=== PATIENT | female | born 1950 | race Caucasian/White ===

== ENCOUNTER 2021-06-12 17:55 | Inpatient (IN) | payer MEDICARE ==
[~2021-06-12] VITALS: Ht 157.5 cm; Wt 122.1 kg
[2021-06-12] MEDS ORDERED: NS 1,000 ML IV ONE (19:05)
[2021-06-12] MEDS: METOPROLOL 5 MG/5 ML VIAL IV SCH ×2 (19:29→21:02)
[2021-06-12 19:37] LABS: BASO # 0.1 10^3/uL (0.0-0.2); BASO % 0.3 % (0.0-1.0); EOS # 0.1 10^3/uL (0.0-0.5); EOS % 0.6 % (0.0-3.0); HEMOGLOBIN 17.9 g/dl (12.0-15.5); LYMPH % 6.7 % (24.0-44.0); MEAN CORPUSCULAR HEMOGLOBIN 26.2 pg (27.0-33.0); MEAN CORPUSCULAR VOLUME 81.9 fl (80.0-96.0); MONO # 0.9 10^3/uL (0.0-0.8); MONO % 5.6 % (2.0-8.0); NEUTROPHILS # 13.5 10^3/uL (1.5-8.5); NEUTROPHILS % 86.4 % (36.0-66.0); PLATELET COUNT, AUTOMATED 299 10^3/uL (150-450); RED BLOOD COUNT 6.84 10^6/uL (4.00-5.40); WHITE BLOOD COUNT 15.6 10^3/uL (4.0-10.0)
[2021-06-12 20:15] LABS: ALBUMIN 3.2 GM/DL (3.2-5.2); BILIRUBIN,DIRECT 0.7 MG/DL (0.0-0.2); BILIRUBIN,TOTAL 1.8 MG/DL (0.2-1.0); CALCIUM LEVEL 9.5 MG/DL (8.8-10.2); CREATININE FOR GFR 1.27 MG/DL (0.55-1.30); POTASSIUM SERUM 3.2 MEQ/L (3.5-5.1); THYROID STIMULATING HORMONE 7.54 uIU/ML (0.358-3.740); THYROXINE (T4) 13.6 UG/DL (4.5-12.0); TOTAL PROTEIN 7.9 GM/DL (6.4-8.2)
[2021-06-12] MEDS ORDERED: ISOVUE-370 76% 100ML VIAL As Ordered ONE (21:45)
[2021-06-12] MEDS ORDERED: cefTRIAXone SOD 1 GM in D5W MINI-BAG PLUS 50 ML IV ONE (23:35)
[2021-06-13] MEDS ORDERED: ACETAMINOPHEN TAB 650MG DOSE (2X325MG) PO PRN (00:25)
[2021-06-13] MEDS ORDERED: POTASSIUM CHLORIDE 10MEQ SR TABLET PO ONE (00:25)
[2021-06-13] MEDS ORDERED: GLUCOSE 4GM CHEW TABLET PO PRN (00:25)
[2021-06-13] MEDS ORDERED: DEXTROSE 50% 50 ML SYRINGE IV PRN (00:25)
[2021-06-13] MEDS ORDERED: SODIUM CHLORIDE 0.9% 1000ML IV STA (00:25)
[2021-06-13] MEDS ORDERED: MOM 30ML SUSPENSION UDC PO PRN (00:25)
[2021-06-13] MEDS ORDERED: GLUCAGON INJ 1MG VIAL SC PRN (00:25)
[2021-06-13] MEDS ORDERED: NYSTATIN OINTMENT 15 GM TOP PRN (00:45)
[2021-06-13] MEDS: HumaLOG INSULIN (NovoLOG) PER UNIT SC SCH ×6 (00:55→21:00)
[2021-06-13 01:26] LABS: HEMOGLOBIN A1c 6.2 %
[2021-06-13] MEDS ORDERED: LABETALOL 100MG/20ML VIAL IV STA (01:36)
[2021-06-13 01:59] LABS: INR 1.29; PROTHROMBIN TIME 16.5 SECONDS (12.7-14.5)
[2021-06-13 02:00] LABS: PARTIAL THROMBOPLASTIN TIME 32.7 SECONDS (25.9-37.0)
[2021-06-13] MEDS ORDERED: ALLO100T PO (02:22)
[2021-06-13] MEDS ORDERED: LEVA45AE INH (02:22)
[2021-06-13] MEDS ORDERED: HYDR25TA PO (02:22)
[2021-06-13] MEDS ORDERED: DILT240C82 PO (02:22)
[2021-06-13] MEDS ORDERED: C 50TAB PO (02:22)
[2021-06-13] MEDS ORDERED: ZINC1TAB2 PO (02:22)
[2021-06-13] MEDS ORDERED: BASA100I SC (02:22)
[2021-06-13] MEDS ORDERED: EZET10TA21 PO (02:22)
[2021-06-13] MEDS ORDERED: NOVOINJ SC (02:22)
[2021-06-13] MEDS ORDERED: B-1100TA2 PO (02:22)
[2021-06-13] MEDS ORDERED: VITATAB73 PO (02:22)
[2021-06-13] MEDS ORDERED: VITA500T41 PO (02:22)
[2021-06-13] MEDS ORDERED: LISI40TA4 PO (02:23)
[2021-06-13] MEDS ORDERED: ELIQ5TAB PO (02:23)
[2021-06-13] MEDS ORDERED: HOME MED LIST COMPLETE! XX SCH (02:25)
[2021-06-13] MEDS: METOPROLOL 5 MG/5 ML VIAL IV SCH (04:53)
[2021-06-13] MEDS: DOCUSATE SODIUM 100MG CAPSULE PO SCH ×2 (07:55→21:10)
[2021-06-13] MEDS: APIXABAN 5 MG TAB (ELIQUIS) PO SCH ×2 (07:56→21:10)
[2021-06-13] MEDS: DOXYCYCLINE HYCLATE 100MG TABLET PO SCH ×2 (07:56→21:10)
[2021-06-13 08:45] LABS: BASO # 0.1 10^3/uL (0.0-0.2); BASO % 0.4 % (0.0-1.0); EOS # 0.1 10^3/uL (0.0-0.5); EOS % 0.9 % (0.0-3.0); HEMATOCRIT 45.5 % (36.0-47.0); LYMPH # 1.1 10^3/uL (1.5-5.0); LYMPH % 8.8 % (24.0-44.0); MEAN CORPUSCULAR HEMOGLOBIN 26.6 pg (27.0-33.0); MEAN CORPUSCULAR HGB CONC 32.1 g/dl (32.0-36.5); MEAN CORPUSCULAR VOLUME 82.9 fl (80.0-96.0); MONO # 1.1 10^3/uL (0.0-0.8); MONO % 8.7 % (2.0-8.0); NEUTROPHILS # 10.4 10^3/uL (1.5-8.5); NEUTROPHILS % 80.7 % (36.0-66.0); PLATELET COUNT, AUTOMATED 253 10^3/uL (150-450); RED BLOOD COUNT 5.49 10^6/uL (4.00-5.40); WHITE BLOOD COUNT 12.8 10^3/uL (4.0-10.0)
[2021-06-13 08:53] LABS: HEMOGLOBIN 14.6 g/dl (12.0-15.5)
[2021-06-13] MEDS ORDERED: METOPROLOL TART 25 MG TABLET PO SCH (09:00)
[2021-06-13] MEDS ORDERED: APIXABAN 2.5 MG TAB (ELIQUIS) PO SCH (09:00)
[2021-06-13 09:31] LABS: CALCIUM LEVEL 8.6 MG/DL (8.8-10.2); CREATININE FOR GFR 1.2 MG/DL (0.55-1.30); FREE T4 1.6 NG/DL (0.76-1.46); MAGNESIUM LEVEL 2.1 MG/DL (1.8-2.4); POTASSIUM SERUM 3.8 MEQ/L (3.5-5.1); THYROID STIMULATING HORMONE 4.54 uIU/ML (0.358-3.740)
[2021-06-13 12:31] VITALS: BP 165/81
[2021-06-13] MEDS: METOPROLOL TART 25 MG TABLET PO SCH ×3 (13:22→23:48)
[2021-06-13 15:34] VITALS: BP 142/80
[2021-06-13 16:04] VITALS: O2SAT 94
[2021-06-13 20:00] VITALS: BP 150/79
[2021-06-13] MEDS ORDERED: cefTRIAXone SOD 1 GM in D5W MINI-BAG PLUS 50 ML IV SCH (23:00)
[2021-06-13 23:46] VITALS: BP 137/89
[2021-06-14] VITALS (10 sets, daily range): BP systolic 130–183; BP diastolic 65–97; O2SAT 100
[2021-06-14] MEDS: METOPROLOL TART 25 MG TABLET PO SCH ×2 (05:09→12:13)
[2021-06-14 06:02] LABS: BASO # 0.1 10^3/uL (0.0-0.2); BASO % 0.6 % (0.0-1.0); EOS # 0.3 10^3/uL (0.0-0.5); HEMOGLOBIN 13.4 g/dl (12.0-15.5); LYMPH # 1.2 10^3/uL (1.5-5.0); LYMPH % 13.8 % (24.0-44.0); MEAN CORPUSCULAR HGB CONC 31.9 g/dl (32.0-36.5); MEAN CORPUSCULAR VOLUME 84.7 fl (80.0-96.0); MONO # 0.9 10^3/uL (0.0-0.8); MONO % 9.4 % (2.0-8.0); NEUTROPHILS # 6.6 10^3/uL (1.5-8.5); PLATELET COUNT, AUTOMATED 258 10^3/uL (150-450); RED BLOOD COUNT 4.96 10^6/uL (4.00-5.40)
[2021-06-14 06:15] LABS: CALCIUM LEVEL 8.4 MG/DL (8.8-10.2); CREATININE FOR GFR 1.28 MG/DL (0.55-1.30); GLOMERULAR FILTRATION RATE 43.6 (>39); MAGNESIUM LEVEL 2.1 MG/DL (1.8-2.4); POTASSIUM SERUM 3.7 MEQ/L (3.5-5.1)
[2021-06-14] MEDS: DOXYCYCLINE HYCLATE 100MG TABLET PO SCH (07:41)
[2021-06-14] MEDS: HumaLOG INSULIN (NovoLOG) PER UNIT SC SCH ×2 (07:42→12:00)
[2021-06-14] MEDS: APIXABAN 5 MG TAB (ELIQUIS) PO SCH (07:42)
[2021-06-14] MEDS: DOCUSATE SODIUM 100MG CAPSULE PO SCH (07:42)
[2021-06-14] MEDS ORDERED: FUROSEMIDE 40MG/4ML VIAL (J1940) IV ONE (08:15)
[2021-06-14] MEDS ORDERED: PREVNAR 13 VACCINE SYRINGE IM ONE (09:00)
[2021-06-14] MEDS ORDERED: HEPARIN SOD (PORCINE) 5000UNITS/ML 1ML VIAL/SYRINGE IV PRN (10:25)
[2021-06-14] MEDS ORDERED: HEPARIN DRIP 25,000 UNITS in IV 1 EA IV SCH (10:25)
[2021-06-14] MEDS ORDERED: ISOVUE-370 76% 100ML VIAL As Ordered ONE (10:51)
[2021-06-14 11:09] LABS: INR 1.51; PARTIAL THROMBOPLASTIN TIME 39.2 SECONDS (25.9-37.0); PROTHROMBIN TIME 18.6 SECONDS (12.7-14.5)
[2021-06-14 11:24] LABS: CK-MB VALUE MASS 2.2 NG/ML (<3.6); MB/CK RELATIVE INDEX 4.31 (< OR =4)
== END 2021-06-14 14:40 | disposition short-term general hospital (02) | DRG 872 ==
LOC: M ED 17:55 → M ED INP 06-13 00:25 → ENRESERV 06-13 13:51 → M PCU 06-13 15:21 → M ICU 06-14 11:18 → UNDODISIN 06-14 12:00
PROVIDERS: ADMIT Family Medicine; ATTEND Internal Medicine
DX: A41.9 Sepsis, unspecified organism (principal); N39.0 Urinary tract infection, site not specified; L03.116 Cellulitis of left lower limb; N25.81 Secondary hyperparathyroidism of renal origin; I74.3 Embolism and thrombosis of arteries of the lower extremities; G91.2 (Idiopathic) normal pressure hydrocephalus; I13.0 Hypertensive heart and chronic kidney disease with heart failure and stage 1 through stage 4 chronic kidney disease, or unspecified chronic kidney disease; G47.33 Obstructive sleep apnea (adult) (pediatric); R29.6 Repeated falls; Z91.14 Patient's other noncompliance with medication regimen; Z90.49 Acquired absence of other specified parts of digestive tract; I48.91 Unspecified atrial fibrillation; I16.0 Hypertensive urgency; E87.6 Hypokalemia; R94.6 Abnormal results of thyroid function studies; Z79.01 Long term (current) use of anticoagulants; Z79.4 Long term (current) use of insulin; Z79.899 Other long term (current) drug therapy; Z88.0 Allergy status to penicillin; Z88.2 Allergy status to sulfonamides; Z88.8 Allergy status to other drugs, medicaments and biological substances; Z20.822 Contact with and (suspected) exposure to COVID-19; Z72.3 Lack of physical exercise; I50.9 Heart failure, unspecified; E11.42 Type 2 diabetes mellitus with diabetic polyneuropathy; I50.810 Right heart failure, unspecified; N18.30 Chronic kidney disease, stage 3 unspecified; E11.22 Type 2 diabetes mellitus with diabetic chronic kidney disease

== ENCOUNTER 2023-08-12 09:50 | Observation (INO) | payer MEDICARE ==
[~2023-08-12] VITALS: Ht 167.6 cm; Wt 98.0 kg
[~2023-08-12 09:50] MED LIST: ALLO100T PO; B-1100TA2 PO; BACI1TAB21 PO; BASA100I SC; C 50TAB PO; CEFD300CAP PO; DILT240C82 PO; ELIQ5TAB PO; EZET10TA21 PO; HYDR-161 PO; HYDR25TA88 PO; LEVA45AE INH; LISI40TA4 PO; MAGN200T10 PO; NOVOINJ SC; SEMA1PEN2 SC; VITA500T41 PO; VITATAB73 PO; ZINC1TAB2 PO
[2023-08-12 12:05] LABS: BASO % 0.3 % (0.0-1.0); EOS # 0.1 10^3/uL (0.0-0.5); EOS % 0.5 % (0.0-3.0); HEMATOCRIT 46.5 % (36.0-47.0); MEAN CORPUSCULAR HEMOGLOBIN 27.9 pg (27.0-33.0); MEAN CORPUSCULAR HGB CONC 34.4 g/dl (32.0-36.5); MEAN CORPUSCULAR VOLUME 81.2 fl (80.0-96.0); MONO # 0.9 10^3/uL (0.0-0.8); MONO % 7.8 % (2.0-8.0); NEUTROPHILS # 9.2 10^3/uL (1.5-8.5); PLATELET COUNT, AUTOMATED 215 10^3/uL (150-450); RED BLOOD COUNT 5.73 10^6/uL (4.00-5.40); WHITE BLOOD COUNT 11.2 10^3/uL (4.0-10.0)
[2023-08-12 12:35] LABS: THYROID STIMULATING HORMONE 2.015 uIU/ML (0.55-4.78)
[2023-08-12 12:36] LABS: FREE T4 1.32 NG/DL (0.89-1.76)
[2023-08-12 12:39] LABS: CK-MB VALUE MASS < 1.0 NG/ML (<3.6); CPK CREATINE PHOSPHOKINASE 59 U/L (34-145); MB/CK RELATIVE INDEX 1.69 (< OR =4)
[2023-08-12] MEDS: NS 500 ML IV ONE (12:57)
[2023-08-12 13:10] LABS: APPEARANCE, URINE HAZY (CLEAR); BACTERIA, URINE AUTO NEGATIVE (NEGATIVE); BILIRUBIN, URINE AUTO NEGATIVE (NEGATIVE); BLOOD, URINE BLOOD 1+ (NEGATIVE); COLOR, URINE YELLOW (YELLOW); GLUCOSE, URINE (UA) AUTO NEGATIVE (NEGATIVE); KETONE, URINE AUTO NEGATIVE (NEGATIVE); LEUKOCYTE ESTERASE, URINE AUTO NEGATIVE (NEGATIVE); MUCUS, URINE SMALL (NEGATIVE); NITRITE, URINE AUTO NEGATIVE (NEGATIVE); PROTEIN, URINE AUTO 2+ mg/dL (NEGATIVE); RBC, URINE AUTO 2 /HPF (0-3); SPECIFIC GRAVITY URINE AUTO 1.014 (1.002-1.035); SQUAMOUS EPITHELIAL CELL UR AU 7 /HPF (0-6); UROBILINOGEN, URINE AUTO 0.2 mg/dL (0.0-2.0); WBC, URINE AUTO 6 /HPF (0-3)
[2023-08-12 14:09] LABS: CK-MB VALUE MASS < 1.0 NG/ML (<3.6)
[2023-08-12 14:12] LABS: CPK CREATINE PHOSPHOKINASE 28 U/L (34-145); MB/CK RELATIVE INDEX 3.57 (< OR =4)
[2023-08-12] MEDS: lisinopriL 40MG TAB PO ONE (14:22)
[2023-08-12] MEDS ORDERED: HYDR-161 PO (14:46)
[2023-08-12] MEDS ORDERED: CEFD1CAP9 PO (14:49)
[2023-08-12] MEDS ORDERED: HOME MED LIST COMPLETE! XX SCH (14:50)
[2023-08-12] MEDS: hydrALAZINE 20MG/ML 1ML VIAL IV ONE (15:40)
[2023-08-12] MEDS ORDERED: hydrALAZINE 20MG/ML 1ML VIAL IV PRN (16:50)
[2023-08-12] MEDS ORDERED: ACETAMINOPHEN TAB 650MG DOSE (2X325MG) PO PRN (16:50)
[2023-08-12] MEDS: hydrALAZINE 20MG/ML 1ML VIAL IV STA (17:28)
[2023-08-12 17:55] LABS: INR 1.37; PROTHROMBIN TIME 16.4 SECONDS (12.5-14.5)
[2023-08-12] MEDS: APIXABAN 5 MG TAB (ELIQUIS) PO SCH (21:15)
[2023-08-12 21:37] VITALS: BP 140/82; TEMP 97.6; O2SAT 95
[2023-08-12] MEDS: EZETIMIBE 10MG TABLET (ZETIA) PO SCH (21:52)
[2023-08-12] MEDS: CEFDINIR 300 MG CAP (OMNICEF) PO SCH (21:52)
[2023-08-12 22:12] VITALS: BP 103/85; TEMP 97.9; O2SAT 94
[2023-08-12 22:39] VITALS: O2SAT 96
[2023-08-13 06:00] VITALS: BP 154/74; TEMP 97.7; O2SAT 94
[2023-08-13 06:15] LABS: HEMATOCRIT 43.2 % (36.0-47.0); HEMOGLOBIN 14.8 g/dl (12.0-15.5); MEAN CORPUSCULAR HEMOGLOBIN 27.9 pg (27.0-33.0); MEAN CORPUSCULAR HGB CONC 34.3 g/dl (32.0-36.5); MEAN CORPUSCULAR VOLUME 81.4 fl (80.0-96.0); PLATELET COUNT, AUTOMATED 215 10^3/uL (150-450); RED BLOOD COUNT 5.31 10^6/uL (4.00-5.40); WHITE BLOOD COUNT 8.5 10^3/uL (4.0-10.0)
[2023-08-13 06:41] LABS: CALCIUM LEVEL 9.1 MG/DL (8.3-10.6); CREATININE FOR GFR 1.26 MG/DL (0.55-1.30); GLOMERULAR FILTRATION RATE 44.2 (>39); POTASSIUM SERUM 3.4 MMOL/L (3.5-5.1); TOTAL PROTEIN 6.2 G/DL (5.7-8.2)
[2023-08-13] MEDS: lisinopriL 40MG TAB PO SCH (08:16)
[2023-08-13] MEDS: amLODIPine 5 MG TAB PO SCH (08:16)
[2023-08-13] MEDS: POTASSIUM CHLORIDE 10MEQ SR TABLET PO ONE (08:16)
[2023-08-13 10:00] VITALS: BP_SYST 158; BP_SYST 164; BP_DIAS 102; BP_DIAS 104; BP_DIAS 110
[2023-08-13 14:23] VITALS: BP 150/88; TEMP 97.7; O2SAT 95
[2023-08-13 20:00] VITALS: BP 108/66; TEMP 97.6; O2SAT 93
[2023-08-14 05:51] LABS: HEMATOCRIT 44.9 % (36.0-47.0); HEMOGLOBIN 14.9 g/dl (12.0-15.5); MEAN CORPUSCULAR HEMOGLOBIN 27.3 pg (27.0-33.0); MEAN CORPUSCULAR HGB CONC 33.2 g/dl (32.0-36.5); MEAN CORPUSCULAR VOLUME 82.4 fl (80.0-96.0); PLATELET COUNT, AUTOMATED 226 10^3/uL (150-450); RED BLOOD COUNT 5.45 10^6/uL (4.00-5.40); WHITE BLOOD COUNT 6.9 10^3/uL (4.0-10.0)
[2023-08-14 06:02] VITALS: BP 155/74; TEMP 97.5; O2SAT 95
[2023-08-14 06:09] LABS: ALBUMIN 2.9 G/DL (3.2-5.2); BILIRUBIN,TOTAL 0.6 MG/DL (0.3-1.2); CALCIUM LEVEL 9.5 MG/DL (8.3-10.6); CREATININE FOR GFR 1.44 MG/DL (0.55-1.30); GLOMERULAR FILTRATION RATE 37.9 (>39); POTASSIUM SERUM 3.8 MMOL/L (3.5-5.1); TOTAL PROTEIN 6.2 G/DL (5.7-8.2)
[2023-08-14] MEDS: NS 1,000 ML IV SCH (08:03)
[2023-08-14 08:37] VITALS: BP_SYST 177; BP_SYST 187; BP_SYST 194; BP_DIAS 103; BP_DIAS 105; BP_DIAS 77
[2023-08-14] MEDS: **hydrALAZINE HCL** 25 MG TAB PO PRN (10:06)
[2023-08-14 14:00] VITALS: BP 178/89; TEMP 97.9; O2SAT 97
[2023-08-14] MEDS: **hydrALAZINE HCL** 25 MG TAB PO SCH (16:20)
[2023-08-14 20:50] VITALS: BP 160/82; TEMP 97.9; O2SAT 97
[2023-08-14] MEDS ORDERED: NYSTATIN 100,000 UNITS/GM TOPICAL PWD 15GM TOP PRN (21:35)
[2023-08-15 01:21] VITALS: BP 154/72; TEMP 97.7; O2SAT 97
[2023-08-15 04:48] VITALS: BP 150/68; TEMP 98.4; O2SAT 96
[2023-08-15 06:48] LABS: HEMATOCRIT 42.1 % (36.0-47.0); HEMOGLOBIN 13.9 g/dl (12.0-15.5); MEAN CORPUSCULAR HEMOGLOBIN 27.5 pg (27.0-33.0); MEAN CORPUSCULAR VOLUME 83.4 fl (80.0-96.0); PLATELET COUNT, AUTOMATED 246 10^3/uL (150-450); RED BLOOD COUNT 5.05 10^6/uL (4.00-5.40); WHITE BLOOD COUNT 7.9 10^3/uL (4.0-10.0)
[2023-08-15 07:19] LABS: ALBUMIN 2.8 G/DL (3.2-5.2); BILIRUBIN,TOTAL 0.5 MG/DL (0.3-1.2); CALCIUM LEVEL 8.8 MG/DL (8.3-10.6); CREATININE FOR GFR 1.38 MG/DL (0.55-1.30); GLOMERULAR FILTRATION RATE 39.8 (>39); TOTAL PROTEIN 5.9 G/DL (5.7-8.2)
[2023-08-15] MEDS ORDERED: HYDR25TA87 PO (07:38)
[2023-08-15] MEDS ORDERED: AMLO1TAB25 PO (07:38)
[2023-08-15 08:33] VITALS: BP 155/81
[2023-08-15 08:36] VITALS: BP_SYST 158; BP_SYST 164; BP_SYST 165; BP_DIAS 71; BP_DIAS 81; BP_DIAS 88
[2023-08-15 10:00] VITALS: BP 164/85; TEMP 97.7; O2SAT 95
[2023-08-15 14:00] VITALS: BP 153/77; TEMP 97.5; O2SAT 95
== END 2023-08-15 14:46 | disposition home or self-care (01) ==
LOC: EDBD 09:50 → M ED 09:50 → M ED INP 09:51 → M PCU 21:26 → M MSPAV 22:12
PROVIDERS: ADMIT Internal Medicine; ATTEND Internal Medicine
DX: I16.0 Hypertensive urgency (principal); R53.81 Other malaise; R42 Dizziness and giddiness; N17.9 Acute kidney failure, unspecified; K31.84 Gastroparesis; N39.0 Urinary tract infection, site not specified; I48.91 Unspecified atrial fibrillation; Z79.01 Long term (current) use of anticoagulants; E11.9 Type 2 diabetes mellitus without complications; I10 Essential (primary) hypertension; G47.33 Obstructive sleep apnea (adult) (pediatric); E66.9 Obesity, unspecified; Z79.899 Other long term (current) drug therapy; Z88.2 Allergy status to sulfonamides; Z88.0 Allergy status to penicillin; Z88.8 Allergy status to other drugs, medicaments and biological substances
CPT/HCPCS: 36415; 70450; 73560; 80047; 80053; 81001; 82550; 82553; 84439; 84443; 84484; 85025; 85027; 85610; 93005; 93041; 96361; 96374; 96375; 96376; 97116; 97161; 97165; 97530; 97535; 99285; G0378; J0360

== ENCOUNTER 2024-07-17 13:18 | Observation (INO) | payer MEDICARE ==
[~2024-07-17] VITALS: Ht 154.9 cm; Wt 118.9 kg
[~2024-07-17 13:18] MED LIST changes: +AMLO1TAB25 PO; +CEFD1CAP9 PO; +HYDR25TA87 PO
[2024-07-17 14:01] LABS: BASO % 0.5 % (0.0-1.0); EOS # 0.1 10^3/uL (0.0-0.5); EOS % 1.3 % (0.0-3.0); HEMATOCRIT 46.8 % (36.0-47.0); HEMOGLOBIN 15.3 g/dl (12.0-15.5); LYMPH # 0.9 10^3/uL (1.5-5.0); LYMPH % 11.3 % (24.0-44.0); MEAN CORPUSCULAR HEMOGLOBIN 27.5 pg (27.0-33.0); MEAN CORPUSCULAR HGB CONC 32.7 g/dl (32.0-36.5); MONO # 0.5 10^3/uL (0.0-0.8); NEUTROPHILS # 6.1 10^3/uL (1.5-8.5); NEUTROPHILS % 79.8 % (36.0-66.0); PLATELET COUNT, AUTOMATED 246 10^3/uL (150-450); RED BLOOD COUNT 5.57 10^6/uL (4.00-5.40); WHITE BLOOD COUNT 7.7 10^3/uL (4.0-10.0)
[2024-07-17 14:16] LABS: INR 1.04; PARTIAL THROMBOPLASTIN TIME 30.7 SECONDS (24.8-34.2); PROTHROMBIN TIME 13.9 SECONDS (12.5-14.5)
[2024-07-17] MEDS: LABETALOL 100MG/20ML VIAL IV STA (14:27)
[2024-07-17] MEDS: **hydrALAZINE HCL** 25 MG TAB PO ONE (14:40)
[2024-07-17 14:41] LABS: ALBUMIN 3.5 G/DL (3.2-5.2); ALKALINE PHOSPHATASE 119 U/L (35-104); ALT/SGPT 23 U/L (7.0-40); AST/SGOT 21 U/L (<34); BILIRUBIN,DIRECT 0.2 MG/DL (<0.4); BILIRUBIN,TOTAL 0.6 MG/DL (0.3-1.2); BLOOD UREA NITROGEN 19 MG/DL (9-23); CALCIUM LEVEL 9.1 MG/DL (8.3-10.6); CARBON DIOXIDE LEVEL 28 MMOL/L (20-31); CHLORIDE LEVEL 103 MMOL/L (98-107); CK-MB VALUE MASS < 1.0 NG/ML (<3.6); CREATININE FOR GFR 1.23 MG/DL (0.55-1.30); FREE T4 1.35 NG/DL (0.89-1.76); GLOMERULAR FILTRATION RATE 45.8 (>39); GLUCOSE, FASTING 136 MG/DL (74-106); POTASSIUM SERUM 4.4 MMOL/L (3.5-5.1); SODIUM LEVEL 141 MMOL/L (136-145); THYROID STIMULATING HORMONE 4.085 uIU/ML (0.55-4.78); TOTAL PROTEIN 7.6 G/DL (5.7-8.2)
[2024-07-17 14:42] LABS: CPK CREATINE PHOSPHOKINASE 27 U/L (34-145)
[2024-07-17 15:40] LABS: CK-MB VALUE MASS < 1.0 NG/ML (<3.6)
[2024-07-17 15:44] LABS: CPK CREATINE PHOSPHOKINASE 23 U/L (34-145); MB/CK RELATIVE INDEX 4.34 (< OR =4)
[2024-07-17] MEDS ORDERED: AMLO1TAB25 PO (17:21)
[2024-07-17] MEDS ORDERED: FARX1TAB5 PO (17:21)
[2024-07-17] MEDS ORDERED: HOME MED LIST COMPLETE! XX SCH (17:25)
[2024-07-17] MEDS: INSULIN LISPRO (NovoLOG) PER UNIT SC SCH ×2 (17:30→21:00)
[2024-07-17] MEDS ORDERED: GLUCAGON INJ 1MG VIAL SC PRN (17:55)
[2024-07-17] MEDS ORDERED: DEXTROSE 50% 50ML SYRINGE IV PRN (17:55)
[2024-07-17] MEDS ORDERED: HEPARIN SOD 5000UNITS/ML 1ML VIAL/SYRINGE SQ SCH (17:55)
[2024-07-17] MEDS ORDERED: GLUCOSE 4 GM CHEW PO PRN (17:55)
[2024-07-17 18:26] LABS: VENOUS BASE EXCESS 3.2 (-2.0-2.0); VENOUS HCO3 28.5 MMOL/L (23.0-27.0); VENOUS O2 SATURATION 77.2 % (60.0-80.0); VENOUS PARTIAL PRESSURE CO2 45.8 mmHg (38.0-50.0); VENOUS PH 7.412 UNITS (7.330-7.430); VENOUS STANDARD HCO3 26.7 MMOL/L; VENOUS TOTAL CO2 29.9 MMOL/L (24.0-28.0)
[2024-07-17 18:33] LABS: THYROXINE (T4) 8.4 UG/DL (4.5-10.9)
[2024-07-17 18:34] LABS: FREE THYROXINE INDEX 3.6 % (1.3-4.8); T UPTAKE 42.8 % (22.5-37.0)
[2024-07-17 18:48] LABS: HEMOGLOBIN A1c 6.2 % (4.0-6.0)
[2024-07-17] MEDS: FUROSEMIDE 40MG/4ML VIAL IV SCH (19:51)
[2024-07-17] MEDS: atenoloL 50 MG TAB PO ONE (19:52)
[2024-07-17] MEDS: hydrALAZINE 20MG/ML 1ML VIAL IV SCH (20:09)
[2024-07-17 21:05] VITALS: BP 147/101; TEMP 97.7; O2SAT 94
[2024-07-17] MEDS: APIXABAN 5 MG TAB PO SCH (21:31)
[2024-07-17 23:03] VITALS: BP 167/76; TEMP 97.6; O2SAT 95
[2024-07-18] VITALS (7 sets, daily range): BP systolic 140–168; BP diastolic 67–94; TEMP 97–98; O2SAT 95–98
[2024-07-18 06:42] LABS: CHOLESTEROL RISK RATIO 4.95 (<5); HDL CHOLESTEROL 33.5 MG/DL (>40); LDL CHOLESTEROL 108.5 MG/DL (<100); NON-HDL-C 132.5 MG/DL
[2024-07-18] MEDS: HYDROCORTISONE 100MG/2ML VIAL IV ONE (06:58)
[2024-07-18] MEDS ORDERED: LASI40TA9 PO (08:02)
[2024-07-18] MEDS ORDERED: ATEN100T PO (08:02)
[2024-07-18 08:17] LABS: IONIZED CALCIUM 4.3 MG/DL (4.5-5.3)
[2024-07-18 08:45] LABS: CALCIUM LEVEL 8.2 MG/DL (8.3-10.6); CREATININE FOR GFR 1.21 MG/DL (0.55-1.30); GLOMERULAR FILTRATION RATE 46.7 (>39); PHOSPHORUS LEVEL 3.6 MG/DL (2.4-5.1); POTASSIUM SERUM 3.6 MMOL/L (3.5-5.1)
[2024-07-18] MEDS ORDERED: ISOVUE-370 76% 100ML VIAL As Ordered ONE (08:47)
[2024-07-18] MEDS: EZETIMIBE 10MG TABLET PO SCH (10:08)
[2024-07-18] MEDS: atenoloL 50 MG TAB PO ONE (10:09)
[2024-07-18] MEDS: ANALGESIC BALM CRM 3OZ TOP SCH (10:09)
[2024-07-18] MEDS: DICLOFENAC EPOLAMINE 1.3% PATCH TOP SCH (10:10)
[2024-07-18] MEDS: metOLazone 5 MG TAB PO ONE (13:37)
[2024-07-18] MEDS: FUROSEMIDE 100MG/10ML VIAL IV ONE (14:10)
[2024-07-18] MEDS: FUROSEMIDE 40MG/4ML VIAL IV SCH (21:23)
[2024-07-18 22:32] LABS: KETONE, URINE AUTO RFX NEGATIVE (NEGATIVE); NITRITE, URINE AUTO RFX NEGATIVE (NEGATIVE); RBC, URINE AUTO RFX 1 /HPF (0-3); SQUAM EPITHELIAL CELL UR AURFX 1 /HPF (0-6); WBC, URINE AUTO RFX 4 /HPF (0-3)
[2024-07-18 22:39] LABS: LEUKOCYTE ESTERASE UR AUTO RFX TRACE (NEGATIVE)
[2024-07-19 03:35] VITALS: BP 160/67; TEMP 97.5; O2SAT 95
[2024-07-19 05:36] LABS: CALCIUM LEVEL 8.8 MG/DL (8.3-10.6); CREATININE FOR GFR 1.45 MG/DL (0.55-1.30); GLOMERULAR FILTRATION RATE 37.6 (>39); POTASSIUM SERUM 3.3 MMOL/L (3.5-5.1)
[2024-07-19 12:00] VITALS: BP 154/72; TEMP 97; O2SAT 99
[2024-07-19] MEDS: POTASSIUM CHLORIDE 10MEQ SR TABLET PO ONE (15:12)
[2024-07-19] MEDS: CALCIUM CARBONATE 500 MG CHEW U/D PO ONE (15:12)
[2024-07-19] MEDS: ISOSORBIDE DINITRATE 30 MG PO SCH (15:13)
[2024-07-19] MEDS: CALCIUM GLUCONATE 1,000 MG in DEXTROSE 5% (D5W) MINI-BAG PLU 100 ML IV ONE (15:14)
[2024-07-19 20:19] VITALS: BP 132/72; TEMP 97.5; O2SAT 96
[2024-07-19] MEDS: atenoloL 25 MG TAB PO SCH (21:00)
[2024-07-20 03:44] VITALS: BP 132/74; TEMP 97.5; O2SAT 93
[2024-07-20 06:53] LABS: CALCIUM LEVEL 9.2 MG/DL (8.3-10.6); CREATININE FOR GFR 1.87 MG/DL (0.55-1.30); GLOMERULAR FILTRATION RATE 27.7 (>39); POTASSIUM SERUM 3.2 MMOL/L (3.5-5.1)
[2024-07-20] MEDS: NS 500 ML IV ONE (09:27)
[2024-07-20] MEDS: POTASSIUM CHLORIDE 10MEQ SR TABLET PO ONE (09:27)
[2024-07-20 12:15] VITALS: BP 152/84; TEMP 97; O2SAT 96
[2024-07-20 19:39] VITALS: BP 171/82; TEMP 97.5; O2SAT 96
[2024-07-20] MEDS: atenoloL 25 MG TAB PO SCH (20:58)
[2024-07-21 04:10] VITALS: BP 172/85; TEMP 97.5; O2SAT 95
[2024-07-21 04:57] LABS: BASO % 0.5 % (0.0-1.0); EOS # 0.2 10^3/uL (0.0-0.5); EOS % 2.5 % (0.0-3.0); HEMATOCRIT 40.6 % (36.0-47.0); HEMOGLOBIN 13.5 g/dl (12.0-15.5); LYMPH # 1.5 10^3/uL (1.5-5.0); LYMPH % 16.7 % (24.0-44.0); MEAN CORPUSCULAR HEMOGLOBIN 27.4 pg (27.0-33.0); MEAN CORPUSCULAR HGB CONC 33.3 g/dl (32.0-36.5); MEAN CORPUSCULAR VOLUME 82.5 fl (80.0-96.0); MONO # 0.8 10^3/uL (0.0-0.8); MONO % 9.5 % (2.0-8.0); NEUTROPHILS # 6.1 10^3/uL (1.5-8.5); NEUTROPHILS % 70.6 % (36.0-66.0); PLATELET COUNT, AUTOMATED 254 10^3/uL (150-450); RED BLOOD COUNT 4.92 10^6/uL (4.00-5.40); WHITE BLOOD COUNT 8.7 10^3/uL (4.0-10.0)
[2024-07-21 05:30] LABS: CALCIUM LEVEL 8.7 MG/DL (8.3-10.6); CREATININE FOR GFR 1.56 MG/DL (0.55-1.30); GLOMERULAR FILTRATION RATE 34.5 (>39); MAGNESIUM LEVEL 1.9 MG/DL (1.8-2.4); POTASSIUM SERUM 3.1 MMOL/L (3.5-5.1)
[2024-07-21 08:30] VITALS: BP 115/71
[2024-07-21] MEDS ORDERED: CEFD1CAP9 PO (11:53)
[2024-07-21] MEDS ORDERED: AMLO1TAB25 PO (11:53)
[2024-07-21] MEDS ORDERED: ATEN50TA2 PO (11:54)
[2024-07-21] MEDS ORDERED: TORS20TA2 PO (11:54)
[2024-07-21 12:00] VITALS: BP 162/88; TEMP 97.3; O2SAT 98
[2024-07-21] MEDS: POTASSIUM CHLORIDE 10MEQ SR TABLET PO ONE (12:08)
[2024-07-21] MEDS: CEFDINIR 300 MG CAP PO SCH (12:08)
== END 2024-07-21 13:43 | disposition home or self-care (01) ==
LOC: EDBD 13:18 → M ED 13:18 → M ED INP 13:19 → M PCU 20:58 → M MSPAV 07-18 14:54
PROVIDERS: ADMIT General Practice; ATTEND Internal Medicine Nephrology
DX: I16.0 Hypertensive urgency (principal); I48.21 Permanent atrial fibrillation; Z79.01 Long term (current) use of anticoagulants; E66.01 Morbid (severe) obesity due to excess calories; I11.0 Hypertensive heart disease with heart failure; I50.32 Chronic diastolic (congestive) heart failure; R26.89 Other abnormalities of gait and mobility; W01.0XXA Fall on same level from slipping, tripping and stumbling without subsequent striking against object, initial encounter; Y92.000 Kitchen of unspecified non-institutional (private) residence as the place of occurrence of the external cause; M25.569 Pain in unspecified knee; N17.0 Acute kidney failure with tubular necrosis; E83.51 Hypocalcemia; E87.6 Hypokalemia; E11.9 Type 2 diabetes mellitus without complications; E78.5 Hyperlipidemia, unspecified; G43.909 Migraine, unspecified, not intractable, without status migrainosus; R60.9 Edema, unspecified; Z79.899 Other long term (current) drug therapy
CPT/HCPCS: 36415; 70450; 71046; 71275; 72125; 73564; 73600; 73630; 80048; 80061; 80076; 81001; 82330; 82550; 82553; 82803; 83036; 83735; 83880; 84100; 84436; 84439; 84443; 84479; 84484; 85025; 85610; 85730; 87088; 87186; 87486; 87581; 87633; 87798; 93005; 93041; 93970; 94760; 96374; 96375; 96376; 97116; 97161; 97165; 97530; 97535; 99285; G0378; J0360; J0612; J1720; J1815; J1920; J1938; Q9967

== ENCOUNTER 2024-10-01 14:29 | Inpatient (IN) | payer MEDICARE, MEDICAID ==
[~2024-10-01] VITALS: Ht 157.5 cm; Wt 114.9 kg
[~2024-10-01 14:29] MED LIST changes: +AMLO1TAB24 PO; +ATEN100T PO; +ATEN50TA2 PO; +FARX1TAB5 PO; +LASI40TA9 PO; +LISI40TA10 PO; -LISI40TA4 PO; +NYST10006 TOP; +TORS20TA2 PO
[2024-10-01 16:01] LABS: VENOUS BASE EXCESS 1.5 (-2.0-2.0); VENOUS HCO3 24.6 MMOL/L (23.0-27.0); VENOUS O2 SATURATION 93.5 % (60.0-80.0); VENOUS PARTIAL PRESSURE CO2 34.6 mmHg (38.0-50.0); VENOUS PARTIAL PRESSURE O2 65.6 mmHg (30.0-50.0); VENOUS PH 7.469 UNITS (7.330-7.430); VENOUS STANDARD HCO3 25.7 MMOL/L; VENOUS TOTAL CO2 25.6 MMOL/L (24.0-28.0)
[2024-10-01 16:05] LABS: BASO # 0.0 10^3/uL (0.0-0.2); BASO % 0.4 % (0.0-1.0); EOS # 0.0 10^3/uL (0.0-0.5); EOS % 0.0 % (0.0-3.0); LYMPH # 0.4 10^3/uL (1.5-5.0); LYMPH % 3.5 % (24.0-44.0); MONO # 0.7 10^3/uL (0.0-0.8); MONO % 6.3 % (2.0-8.0); NEUTROPHILS # 10.0 10^3/uL (1.5-8.5); NEUTROPHILS % 89.4 % (36.0-66.0); PLATELET COUNT, AUTOMATED 224 10^3/uL (150-450)
[2024-10-01 16:24] LABS: CK-MB VALUE MASS 1.4 NG/ML (<3.6)
[2024-10-01 16:27] LABS: ALT/SGPT 24.0 U/L (7.0-40); AST/SGOT 39.0 U/L (<34); CALCIUM LEVEL 8.7 MG/DL (8.3-10.6); CARBON DIOXIDE LEVEL 23.0 MMOL/L (20-31); CHLORIDE LEVEL 101.0 MMOL/L (98-107); CREATININE FOR GFR 1.03 MG/DL (0.55-1.30); GLOMERULAR FILTRATION RATE 56.7 (>39); POTASSIUM SERUM 3.8 MMOL/L (3.5-5.1); SODIUM LEVEL 140.0 MMOL/L (136-145)
[2024-10-01] MEDS: LIDOCAINE 2% 5 ML JELLY UROJET TOP ONE ×2 (16:30→17:23)
[2024-10-01 16:36] LABS: CPK CREATINE PHOSPHOKINASE 80.0 U/L (34-145); MB/CK RELATIVE INDEX 1.75 (< OR =4)
[2024-10-01 17:11] LABS: INR 1.09
[2024-10-01] MEDS: NS (Normal Saline) 0.9% 1,000 ML IV ONE ×2 (17:23→19:58)
[2024-10-01 18:11] LABS: CK-MB VALUE MASS 1.2 NG/ML (<3.6)
[2024-10-01 18:12] LABS: CPK CREATINE PHOSPHOKINASE 60.0 U/L (34-145); MB/CK RELATIVE INDEX 2.0 (< OR =4)
[2024-10-01] MEDS ORDERED: HOME MED LIST COMPLETE! XX SCH (18:55)
[2024-10-01] MEDS ORDERED: AMLO1TAB24 PO (18:55)
[2024-10-01 19:03] LABS: KETONE, URINE AUTO RFX TRACE mg/dL (NEGATIVE); LEUKOCYTE ESTERASE UR AUTO RFX NEGATIVE (NEGATIVE); MUCUS, URINE RFX LARGE (NEGATIVE); NITRITE, URINE AUTO RFX NEGATIVE (NEGATIVE); RBC, URINE AUTO RFX 89 /HPF (0-3); SQUAM EPITHELIAL CELL UR AURFX 2 /HPF (0-6)
[2024-10-01 19:04] LABS: WBC, URINE AUTO RFX 52 /HPF (0-3)
[2024-10-01] MEDS: cefTRIAXone SOD 1 GM in DEXTROSE 5% (D5W) ADV/MINI-BAG 50 ML IV ONE (19:45)
[2024-10-01 20:51] LABS: CK-MB VALUE MASS 1.4 NG/ML (<3.6)
[2024-10-01] MEDS: INSULIN LISPRO (NovoLOG) PER UNIT SC SCH (21:00)
[2024-10-01 21:05] LABS: CPK CREATINE PHOSPHOKINASE 69.0 U/L (34-145); MB/CK RELATIVE INDEX 2.02 (< OR =4)
[2024-10-01] MEDS ORDERED: MOM 30 ML SUSPENSION UDC PO PRN (22:35)
[2024-10-01] MEDS ORDERED: MAALOX 30 ML SUSP *UDC PO PRN (22:35)
[2024-10-01] MEDS ORDERED: DEXTROSE 50% 50 ML SYRINGE IV PRN (23:40)
[2024-10-01] MEDS ORDERED: GLUCOSE 4 GM CHEW PO PRN (23:40)
[2024-10-01] MEDS ORDERED: GLUCAGON INJ 1 MG VIAL SC PRN (23:40)
[2024-10-02] MEDS: REMDESIVIR 200 MG in NS 250 ML IV ONE (00:50)
[2024-10-02] MEDS ORDERED: PILL CUTTER 1 EACH XX PRN (01:10)
[2024-10-02 02:41] VITALS: BP 162/99; TEMP 98.4; O2SAT 94
[2024-10-02 07:26] LABS: CALCIUM LEVEL 8.5 MG/DL (8.3-10.6); CARBON DIOXIDE LEVEL 26.0 MMOL/L (20-31); CHLORIDE LEVEL 103.0 MMOL/L (98-107); CREATININE FOR GFR 1.55 MG/DL (0.55-1.30); GLOMERULAR FILTRATION RATE 34.7 (>39); MAGNESIUM LEVEL 1.8 MG/DL (1.8-2.4); POTASSIUM SERUM 3.1 MMOL/L (3.5-5.1); SODIUM LEVEL 141.0 MMOL/L (136-145)
[2024-10-02] MEDS: INSULIN LISPRO (NovoLOG) PER UNIT SC SCH (07:30)
[2024-10-02 07:31] LABS: BASO # 0.0 10^3/uL (0.0-0.2); BASO % 0.3 % (0.0-1.0); EOS # 0.0 10^3/uL (0.0-0.5); EOS % 0.0 % (0.0-3.0); LYMPH # 0.8 10^3/uL (1.5-5.0); LYMPH % 12.9 % (24.0-44.0); MONO # 0.9 10^3/uL (0.0-0.8); MONO % 14.7 % (2.0-8.0); NEUTROPHILS # 4.5 10^3/uL (1.5-8.5); NEUTROPHILS % 71.8 % (36.0-66.0); PLATELET COUNT, AUTOMATED 201 10^3/uL (150-450)
[2024-10-02] MEDS: EZETIMIBE 10 MG TABLET PO SCH (08:40)
[2024-10-02] MEDS: DOXYCYCLINE HYCLATE 100 MG TABLET PO SCH (08:40)
[2024-10-02] MEDS: cefTRIAXone SOD 2 GM in DEXTROSE 5% (D5W) ADV/MINI-BAG 50 ML IV SCH (08:40)
[2024-10-02] MEDS: amLODIPine 5 MG TAB PO SCH (08:43)
[2024-10-02] MEDS: DAPAGLIFLOZIN PROPANEDIOL 10 MG TABLET PO SCH (08:43)
[2024-10-02] MEDS: TORSEMIDE 20 MG TAB PO SCH (08:44)
[2024-10-02] MEDS: APIXABAN 5 MG TAB PO SCH (08:44)
[2024-10-02 11:51] VITALS: BP 154/83; TEMP 97.8; O2SAT 94
[2024-10-02 21:00] VITALS: BP 152/84; TEMP 99; O2SAT 93
[2024-10-03] VITALS: BP 136/82; TEMP 97.5; O2SAT 92
[2024-10-03 05:21] VITALS: BP 143/81; TEMP 97.9; O2SAT 90
[2024-10-03] MEDS: LOPERAMIDE 2 MG CAPLET PO PRN (09:54)
[2024-10-03 12:00] VITALS: BP 149/77; TEMP 97.9; O2SAT 91
[2024-10-03 20:49] VITALS: BP 147/73; TEMP 98.2; O2SAT 95
[2024-10-04 05:03] VITALS: BP 156/82; TEMP 97.9; O2SAT 92
[2024-10-04 08:10] LABS: BASO # 0.0 10^3/uL (0.0-0.2); BASO % 0.3 % (0.0-1.0); EOS # 0.1 10^3/uL (0.0-0.5); EOS % 1.0 % (0.0-3.0); LYMPH # 0.7 10^3/uL (1.5-5.0); LYMPH % 10.5 % (24.0-44.0); MONO # 0.8 10^3/uL (0.0-0.8); MONO % 11.7 % (2.0-8.0); NEUTROPHILS # 5.1 10^3/uL (1.5-8.5); NEUTROPHILS % 76.2 % (36.0-66.0); PLATELET COUNT, AUTOMATED 202 10^3/uL (150-450)
[2024-10-04 08:32] LABS: ALT/SGPT 24.0 U/L (7.0-40); AST/SGOT 42.0 U/L (<34); CALCIUM LEVEL 8.1 MG/DL (8.3-10.6); CARBON DIOXIDE LEVEL 24.0 MMOL/L (20-31); CHLORIDE LEVEL 103.0 MMOL/L (98-107); CREATININE FOR GFR 1.19 MG/DL (0.55-1.30); GLOMERULAR FILTRATION RATE 47.7 (>39); POTASSIUM SERUM 3.0 MMOL/L (3.5-5.1); SODIUM LEVEL 142.0 MMOL/L (136-145)
[2024-10-04] MEDS: ONDANSETRON 4MG 2ML VIAL IV PRN (10:41)
[2024-10-04 11:39] VITALS: BP 166/81; TEMP 97.7; O2SAT 92
[2024-10-04] MEDS: guaiFENesin DM *SUGAR FREE* 5ML**DIABETIC TUSSIN DM PO PRN (11:58)
[2024-10-04 18:30] VITALS: BP 162/76
[2024-10-04 19:55] VITALS: BP 142/65; TEMP 97.7; O2SAT 93
[2024-10-05] MEDS: NYSTATIN 100,000 UNITS/GM TOPICAL PWD 15 GM TOP PRN (01:23)
[2024-10-05 03:00] VITALS: O2SAT 79
[2024-10-05 03:01] VITALS: O2SAT 96
[2024-10-05 04:51] VITALS: BP 149/80; TEMP 97.7; O2SAT 94
[2024-10-05 06:15] LABS: BASO # 0.0 10^3/uL (0.0-0.2); BASO % 0.2 % (0.0-1.0); EOS # 0.2 10^3/uL (0.0-0.5); EOS % 3.2 % (0.0-3.0); LYMPH # 1.1 10^3/uL (1.5-5.0); LYMPH % 19.0 % (24.0-44.0); MONO # 0.6 10^3/uL (0.0-0.8); MONO % 10.2 % (2.0-8.0); NEUTROPHILS # 4.0 10^3/uL (1.5-8.5); NEUTROPHILS % 66.9 % (36.0-66.0); PLATELET COUNT, AUTOMATED 187 10^3/uL (150-450)
[2024-10-05 06:36] LABS: CALCIUM LEVEL 8.1 MG/DL (8.3-10.6); CARBON DIOXIDE LEVEL 25.0 MMOL/L (20-31); CHLORIDE LEVEL 103.0 MMOL/L (98-107); CREATININE FOR GFR 1.24 MG/DL (0.55-1.30); GLOMERULAR FILTRATION RATE 45.4 (>39); POTASSIUM SERUM 3.1 MMOL/L (3.5-5.1); SODIUM LEVEL 141.0 MMOL/L (136-145)
[2024-10-05] MEDS: CEFDINIR 300 MG CAP PO SCH (08:40)
[2024-10-05 09:45] LABS: MAGNESIUM LEVEL 1.8 MG/DL (1.8-2.4)
[2024-10-05] MEDS ORDERED: POTASSIUM CHLORIDE 10MEQ SR TABLET PO SCH (10:00)
[2024-10-05] MEDS: POTASSIUM CHLORIDE 10% LIQ 20MEQ/15ML UDC PO SCH (10:19)
[2024-10-05] MEDS: MAG SULF 1GM/100ML (MAG RUN) 1 GM in IV 1 EA IV SCH (10:20)
[2024-10-05] MEDS: CALCIUM GLUCONATE 1,000 MG in DEXTROSE 5% (D5W) MINI-BAG PLU 100 ML IV ONE (10:20)
[2024-10-05 11:53] VITALS: O2SAT 91
[2024-10-05] MEDS: KCL 10MEQ/100ML SWI (KRUN) 10 MEQ in IV 1 EA IV SCH ×2 (12:45→23:26)
[2024-10-05 19:00] VITALS: O2SAT 92
[2024-10-05 21:00] VITALS: BP 133/62; TEMP 97.3; O2SAT 91
[2024-10-05 21:47] LABS: MAGNESIUM LEVEL 2.1 MG/DL (1.8-2.4); POTASSIUM SERUM 3.5 MMOL/L (3.5-5.1)
[2024-10-05] MEDS: KCL 10MEQ/100ML SWI (KRUN) 10 MEQ in IV 1 EA IV ONE (23:19)
[2024-10-05] MEDS: ACETAMINOPHEN 325 MG TAB PO PRN (23:20)
[2024-10-06] MEDS ORDERED: POTASSIUM CHLORIDE 10MEQ SR TABLET PO ONE
[2024-10-06 00:01] LABS: MYCOPLASMA PNEUMONIAE IGG 2.69 (<=0.90); MYCOPLASMA PNEUMONIAE IGM 473.0 U/mL (<770)
[2024-10-06 03:49] VITALS: BP 152/76; TEMP 97.7; O2SAT 92
[2024-10-06 06:37] LABS: BASO # 0.0 10^3/uL (0.0-0.2); BASO % 0.2 % (0.0-1.0); EOS # 0.2 10^3/uL (0.0-0.5); EOS % 2.5 % (0.0-3.0); LYMPH # 1.0 10^3/uL (1.5-5.0); LYMPH % 16.1 % (24.0-44.0); MONO # 0.5 10^3/uL (0.0-0.8); MONO % 7.6 % (2.0-8.0); NEUTROPHILS # 4.5 10^3/uL (1.5-8.5); NEUTROPHILS % 73.3 % (36.0-66.0); PLATELET COUNT, AUTOMATED 198 10^3/uL (150-450)
[2024-10-06 07:02] LABS: CALCIUM LEVEL 8.3 MG/DL (8.3-10.6); CARBON DIOXIDE LEVEL 26.0 MMOL/L (20-31); CHLORIDE LEVEL 106.0 MMOL/L (98-107); CREATININE FOR GFR 1.15 MG/DL (0.55-1.30); GLOMERULAR FILTRATION RATE 49.7 (>39); POTASSIUM SERUM 3.8 MMOL/L (3.5-5.1); SODIUM LEVEL 141.0 MMOL/L (136-145)
[2024-10-06 08:06] VITALS: BP 160/79; TEMP 97.3; O2SAT 92
[2024-10-06 08:17] VITALS: O2SAT 91
[2024-10-06] MEDS: amLODIPine 5 MG TAB PO ONE (13:15)
[2024-10-06] MEDS: ISOSORBIDE MONONITRATE 30 MG XR TAB PO ONE (13:16)
[2024-10-06 13:29] VITALS: O2SAT 99
[2024-10-06 16:07] LABS: URINE STREP PNEUMONIAE ANTIGEN Not Detected (Not Detected)
[2024-10-06 20:01] VITALS: BP 156/75; TEMP 97.9; O2SAT 94
[2024-10-07 03:57] VITALS: BP 148/78; TEMP 97.7; O2SAT 96
[2024-10-07] MEDS: ISOSORBIDE MONONITRATE 30 MG XR TAB PO SCH (09:33)
[2024-10-07] MEDS: amLODIPine 10 MG TAB PO SCH (21:26)
[2024-10-08 06:00] VITALS: BP 156/86; TEMP 97.7; O2SAT 94
[2024-10-08 08:18] VITALS: BP 144/68
[2024-10-08] MEDS ORDERED: AMLO1TAB25 PO (12:50)
[2024-10-08] MEDS ORDERED: ISOS1TAB35 PO (12:50)
[2024-10-08] MEDS ORDERED: DOXY100T PO (12:50)
[2024-10-08] MEDS ORDERED: ATEN25TA PO (12:50)
[2024-10-08] MEDS ORDERED: LOPE2CAP PO (13:02)
[2024-10-08] MEDS ORDERED: NYST10006 TOP (13:02)
== END 2024-10-08 14:03 | DRG 177 ==
LOC: M ED 14:29 → M ED INP 22:34 → M MSPAV 10-02 02:26
PROVIDERS: ADMIT Student in an Organized Health Care Education/Training Program; ATTEND General Practice
DX: U07.1 COVID-19 (principal); J15.9 Unspecified bacterial pneumonia; Z68.42 Body mass index [BMI] 45.0-49.9, adult; N39.0 Urinary tract infection, site not specified; N17.9 Acute kidney failure, unspecified; A08.39 Other viral enteritis; I48.91 Unspecified atrial fibrillation; I11.0 Hypertensive heart disease with heart failure; G47.33 Obstructive sleep apnea (adult) (pediatric); E66.01 Morbid (severe) obesity due to excess calories; I89.0 Lymphedema, not elsewhere classified; K21.9 Gastro-esophageal reflux disease without esophagitis; H40.9 Unspecified glaucoma; E78.5 Hyperlipidemia, unspecified; I50.9 Heart failure, unspecified; E11.9 Type 2 diabetes mellitus without complications; D64.9 Anemia, unspecified; R29.6 Repeated falls; E86.0 Dehydration; R32 Unspecified urinary incontinence; I16.0 Hypertensive urgency; M40.209 Unspecified kyphosis, site unspecified; B96.1 Klebsiella pneumoniae [K. pneumoniae] as the cause of diseases classified elsewhere; E87.6 Hypokalemia; R13.10 Dysphagia, unspecified; Z79.01 Long term (current) use of anticoagulants; Z79.899 Other long term (current) drug therapy; Z88.0 Allergy status to penicillin; Z88.8 Allergy status to other drugs, medicaments and biological substances; Z86.718 Personal history of other venous thrombosis and embolism; Z88.2 Allergy status to sulfonamides

== ENCOUNTER 2024-10-19 10:11 | Inpatient (IN) | payer MEDICARE, MEDICAID ==
[~2024-10-19] VITALS: Ht 157.5 cm; Wt 117.9 kg
[~2024-10-19 10:11] MED LIST changes: +ATEN25TA PO; +DOXY100T PO; +ISOS1TAB35 PO; +LOPE2CAP PO
[2024-10-19 11:26] LABS: BASO # 0.0 10^3/uL (0.0-0.2); BASO % 0.3 % (0.0-1.0); EOS # 0.0 10^3/uL (0.0-0.5); EOS % 0.0 % (0.0-3.0); LYMPH # 0.5 10^3/uL (1.5-5.0); LYMPH % 3.3 % (24.0-44.0); MONO # 0.5 10^3/uL (0.0-0.8); MONO % 3.8 % (2.0-8.0); NEUTROPHILS # 13.0 10^3/uL (1.5-8.5); NEUTROPHILS % 92.2 % (36.0-66.0); PLATELET COUNT, AUTOMATED 253 10^3/uL (150-450)
[2024-10-19] MEDS ORDERED: CEPH500C PO (11:28)
[2024-10-19] MEDS ORDERED: ISOS1TAB35 PO (11:28)
[2024-10-19] MEDS ORDERED: NYST1POW3 TOP (11:28)
[2024-10-19 11:29] LABS: KETONE, URINE AUTO RFX TRACE mg/dL (NEGATIVE); MUCUS, URINE RFX SMALL (NEGATIVE); NITRITE, URINE AUTO RFX NEGATIVE (NEGATIVE); RBC, URINE AUTO RFX 8 /HPF (0-3); SQUAM EPITHELIAL CELL UR AURFX 4 /HPF (0-6); WBC, URINE AUTO RFX 6 /HPF (0-3)
[2024-10-19 11:30] LABS: LEUKOCYTE ESTERASE UR AUTO RFX TRACE (NEGATIVE)
[2024-10-19] MEDS ORDERED: HOME MED LIST COMPLETE! XX SCH (11:30)
[2024-10-19 11:57] LABS: ALT/SGPT 23.0 U/L (7.0-40); AST/SGOT 41.0 U/L (<34); CALCIUM LEVEL 9.3 MG/DL (8.3-10.6); CARBON DIOXIDE LEVEL 23.0 MMOL/L (20-31); CHLORIDE LEVEL 108.0 MMOL/L (98-107); CREATININE FOR GFR 1.12 MG/DL (0.55-1.30); GLOMERULAR FILTRATION RATE 51.3 (>39); POTASSIUM SERUM 4.1 MMOL/L (3.5-5.1); SODIUM LEVEL 144.0 MMOL/L (136-145)
[2024-10-19 11:59] LABS: CPK CREATINE PHOSPHOKINASE 633.0 U/L (34-145)
[2024-10-19] MEDS: cefTRIAXone SOD 2 GM in DEXTROSE 5% (D5W) ADV/MINI-BAG 50 ML IV ONE (14:04)
[2024-10-19] MEDS ORDERED: NYSTATIN 100,000 UNITS/GM TOPICAL PWD 15 GM TOP PRN (15:30)
[2024-10-19 16:37] LABS: INR 1.31
[2024-10-19 20:14] VITALS: BP 147/72; TEMP 98.6; O2SAT 91
[2024-10-19] MEDS: APIXABAN 5 MG TAB PO SCH (21:06)
[2024-10-19] MEDS: amLODIPine 5 MG TAB PO SCH (21:06)
[2024-10-20 02:54] VITALS: O2SAT 85
[2024-10-20] MEDS: ACETAMINOPHEN 325 MG TAB PO PRN (03:22)
[2024-10-20 03:27] VITALS: BP 123/68; TEMP 97.7; O2SAT 94
[2024-10-20 06:24] LABS: PLATELET COUNT, AUTOMATED 217 10^3/uL (150-450)
[2024-10-20 06:32] VITALS: O2SAT 93
[2024-10-20 06:51] LABS: CPK CREATINE PHOSPHOKINASE 296.0 U/L (34-145)
[2024-10-20 06:52] LABS: ALT/SGPT 17.0 U/L (7.0-40); AST/SGOT 31.0 U/L (<34); CALCIUM LEVEL 8.5 MG/DL (8.3-10.6); CARBON DIOXIDE LEVEL 24.0 MMOL/L (20-31); CHLORIDE LEVEL 107.0 MMOL/L (98-107); CREATININE FOR GFR 1.06 MG/DL (0.55-1.30); GLOMERULAR FILTRATION RATE 54.8 (>39); POTASSIUM SERUM 3.6 MMOL/L (3.5-5.1); SODIUM LEVEL 142.0 MMOL/L (136-145)
[2024-10-20] MEDS: TORSEMIDE 20 MG TAB PO SCH (08:53)
[2024-10-20] MEDS: ISOSORBIDE MONONITRATE 30 MG XR TAB PO SCH (08:53)
[2024-10-20] MEDS: DAPAGLIFLOZIN PROPANEDIOL 10 MG TABLET PO SCH (08:53)
[2024-10-20] MEDS: EZETIMIBE 10 MG TABLET PO SCH (08:54)
[2024-10-20 11:42] VITALS: BP 117/77; TEMP 97.2; O2SAT 96
[2024-10-20] MEDS: cefTRIAXone SOD 1 GM in DEXTROSE 5% (D5W) ADV/MINI-BAG 50 ML IV SCH (14:34)
[2024-10-20 20:08] VITALS: BP 121/70; O2SAT 95
[2024-10-20 20:41] VITALS: TEMP 97.9
[2024-10-21 03:18] VITALS: BP 116/63; TEMP 97.5; O2SAT 95
[2024-10-21 06:39] LABS: PLATELET COUNT, AUTOMATED 212 10^3/uL (150-450)
[2024-10-21 07:12] LABS: ALT/SGPT 18.0 U/L (7.0-40); AST/SGOT 26.0 U/L (<34); CALCIUM LEVEL 8.6 MG/DL (8.3-10.6); CARBON DIOXIDE LEVEL 26.0 MMOL/L (20-31); CHLORIDE LEVEL 105.0 MMOL/L (98-107); CREATININE FOR GFR 1.2 MG/DL (0.55-1.30); GLOMERULAR FILTRATION RATE 47.2 (>39); POTASSIUM SERUM 3.3 MMOL/L (3.5-5.1); SODIUM LEVEL 143.0 MMOL/L (136-145)
[2024-10-21] MEDS: POTASSIUM CHLORIDE 10MEQ SR TABLET PO ONE (08:09)
[2024-10-21 12:32] VITALS: BP 114/71; TEMP 97.2; O2SAT 95
[2024-10-21 16:06] VITALS: BP 130/64; TEMP 97; O2SAT 94
[2024-10-21 20:06] VITALS: BP 125/68; TEMP 97.3; O2SAT 99
[2024-10-22 05:48] VITALS: BP 130/67; TEMP 97.5; O2SAT 98
[2024-10-22 06:07] LABS: PLATELET COUNT, AUTOMATED 235 10^3/uL (150-450)
[2024-10-22 07:21] LABS: ALT/SGPT 19.0 U/L (7.0-40); AST/SGOT 22.0 U/L (<34); CALCIUM LEVEL 8.8 MG/DL (8.3-10.6); CARBON DIOXIDE LEVEL 26.0 MMOL/L (20-31); CHLORIDE LEVEL 105.0 MMOL/L (98-107); CREATININE FOR GFR 1.36 MG/DL (0.55-1.30); GLOMERULAR FILTRATION RATE 40.6 (>39); POTASSIUM SERUM 3.5 MMOL/L (3.5-5.1); SODIUM LEVEL 144.0 MMOL/L (136-145)
[2024-10-22] MEDS ORDERED: PILL CUTTER 1 EACH XX ONE (09:37)
[2024-10-22 20:00] VITALS: BP 132/81; TEMP 97.6; O2SAT 98
[2024-10-23 04:16] VITALS: BP 136/79; TEMP 97; O2SAT 98
[2024-10-23 16:57] LABS: PLATELET COUNT, AUTOMATED 262 10^3/uL (150-450)
[2024-10-23 17:30] LABS: ALT/SGPT 22.0 U/L (7.0-40); AST/SGOT 25.0 U/L (<34); CALCIUM LEVEL 9.0 MG/DL (8.3-10.6); CARBON DIOXIDE LEVEL 30.0 MMOL/L (20-31); CHLORIDE LEVEL 102.0 MMOL/L (98-107); CREATININE FOR GFR 1.3 MG/DL (0.55-1.30); GLOMERULAR FILTRATION RATE 42.9 (>39); POTASSIUM SERUM 3.5 MMOL/L (3.5-5.1); SODIUM LEVEL 143.0 MMOL/L (136-145)
[2024-10-23 20:00] VITALS: BP 102/61; TEMP 97.2; O2SAT 95
[2024-10-24 06:25] LABS: PLATELET COUNT, AUTOMATED 244 10^3/uL (150-450)
[2024-10-24 06:58] LABS: ALT/SGPT 20.0 U/L (7.0-40); AST/SGOT 22.0 U/L (<34); CALCIUM LEVEL 8.7 MG/DL (8.3-10.6); CARBON DIOXIDE LEVEL 28.0 MMOL/L (20-31); CHLORIDE LEVEL 104.0 MMOL/L (98-107); CREATININE FOR GFR 1.38 MG/DL (0.55-1.30); GLOMERULAR FILTRATION RATE 39.9 (>39); POTASSIUM SERUM 3.4 MMOL/L (3.5-5.1); SODIUM LEVEL 144.0 MMOL/L (136-145)
[2024-10-25 06:37] VITALS: BP 120/60; TEMP 98; O2SAT 94
[2024-10-25 07:10] LABS: PLATELET COUNT, AUTOMATED 237 10^3/uL (150-450)
[2024-10-25 08:02] LABS: ALT/SGPT 20.0 U/L (7.0-40); AST/SGOT 23.0 U/L (<34); CALCIUM LEVEL 8.8 MG/DL (8.3-10.6); CARBON DIOXIDE LEVEL 29.0 MMOL/L (20-31); CHLORIDE LEVEL 105.0 MMOL/L (98-107); CREATININE FOR GFR 1.41 MG/DL (0.55-1.30); GLOMERULAR FILTRATION RATE 38.9 (>39); POTASSIUM SERUM 3.3 MMOL/L (3.5-5.1); SODIUM LEVEL 145.0 MMOL/L (136-145)
[2024-10-25 21:45] VITALS: BP 124/61
[2024-10-26 05:15] VITALS: BP 129/71; TEMP 97.3; O2SAT 96
[2024-10-26 06:25] LABS: PLATELET COUNT, AUTOMATED 208 10^3/uL (150-450)
[2024-10-26 06:44] LABS: ALT/SGPT 22.0 U/L (7.0-40); AST/SGOT 23.0 U/L (<34); CALCIUM LEVEL 8.8 MG/DL (8.3-10.6); CARBON DIOXIDE LEVEL 27.0 MMOL/L (20-31); CHLORIDE LEVEL 104.0 MMOL/L (98-107); CREATININE FOR GFR 1.22 MG/DL (0.55-1.30); GLOMERULAR FILTRATION RATE 46.3 (>39); POTASSIUM SERUM 3.3 MMOL/L (3.5-5.1); SODIUM LEVEL 142.0 MMOL/L (136-145)
[2024-10-27 04:00] VITALS: BP 124/57; TEMP 97.3; O2SAT 96
[2024-10-27] MEDS: ONDANSETRON 4MG TAB PO PRN (17:46)
[2024-10-28 04:00] VITALS: BP 118/56; TEMP 97.3; O2SAT 94
[2024-10-29 04:53] VITALS: BP 131/63; TEMP 97; O2SAT 96
[2024-10-29 08:08] VITALS: BP 132/63
[2024-10-29] MEDS ORDERED: POTA10CA70 PO (14:20)
[2024-10-29] MEDS: MIRALAX *UNIT DOSE* 17 GM PACKET PO ONE (14:55)
[2024-10-29] MEDS: SENNA 8.6 MG TAB PO ONE (14:55)
== END 2024-10-29 15:10 | DRG 690 ==
LOC: M ED 10:11 → EDBD 10:11 → M ED INP 10:12 → M MSPAV 20:14 → OBSVTOIN 10-20 11:56
PROVIDERS: ADMIT Internal Medicine; ATTEND Internal Medicine
DX: N39.0 Urinary tract infection, site not specified (principal); I50.32 Chronic diastolic (congestive) heart failure; M62.82 Rhabdomyolysis; I48.91 Unspecified atrial fibrillation; I11.0 Hypertensive heart disease with heart failure; G47.33 Obstructive sleep apnea (adult) (pediatric); E66.01 Morbid (severe) obesity due to excess calories; I89.0 Lymphedema, not elsewhere classified; K21.9 Gastro-esophageal reflux disease without esophagitis; R32 Unspecified urinary incontinence; D64.9 Anemia, unspecified; E78.5 Hyperlipidemia, unspecified; R13.10 Dysphagia, unspecified; H40.9 Unspecified glaucoma; H26.9 Unspecified cataract; N63.10 Unspecified lump in the right breast, unspecified quadrant; Z90.49 Acquired absence of other specified parts of digestive tract; Z79.01 Long term (current) use of anticoagulants; Z79.899 Other long term (current) drug therapy; Z88.0 Allergy status to penicillin; Z88.2 Allergy status to sulfonamides; Z88.6 Allergy status to analgesic agent; Z88.8 Allergy status to other drugs, medicaments and biological substances; Z86.718 Personal history of other venous thrombosis and embolism; Z86.16 Personal history of COVID-19; R91.8 Other nonspecific abnormal finding of lung field; W19.XXXA Unspecified fall, initial encounter; Y92.9 Unspecified place or not applicable; R26.89 Other abnormalities of gait and mobility

== ENCOUNTER 2024-12-27 12:28 | Observation (INO) | payer MEDICARE, MEDICAID ==
[~2024-12-27] VITALS: Ht 157.5 cm; Wt 120.5 kg
[~2024-12-27 12:28] MED LIST changes: +CEPH500C PO; -EZET10TA21 PO; +EZET10TA57 PO; +NYST1POW3 TOP; +POTA10CA70 PO
[2024-12-27 15:16] LABS: BASO # 0.0 10^3/uL (0.0-0.2); BASO % 0.4 % (0.0-1.0); EOS # 0.1 10^3/uL (0.0-0.5); EOS % 1.4 % (0.0-3.0); LYMPH # 1.1 10^3/uL (1.5-5.0); LYMPH % 13.6 % (24.0-44.0); MONO # 0.5 10^3/uL (0.0-0.8); MONO % 6.9 % (2.0-8.0); NEUTROPHILS # 6.0 10^3/uL (1.5-8.5); NEUTROPHILS % 77.4 % (36.0-66.0); PLATELET COUNT, AUTOMATED 223 10^3/uL (150-450)
[2024-12-27 15:27] LABS: INR 1.07
[2024-12-27 15:45] LABS: ALT/SGPT 25.0 U/L (7.0-40); AST/SGOT 31.0 U/L (<34); CALCIUM LEVEL 9.1 MG/DL (8.3-10.6); CARBON DIOXIDE LEVEL 27.0 MMOL/L (20-31); CHLORIDE LEVEL 106.0 MMOL/L (98-107); CREATININE FOR GFR 1.02 MG/DL (0.55-1.30); GLOMERULAR FILTRATION RATE 57.0 (>39); POTASSIUM SERUM 4.1 MMOL/L (3.5-5.1); SODIUM LEVEL 145.0 MMOL/L (136-145)
[2024-12-27] MEDS ORDERED: POTA-149 PO (16:11)
[2024-12-27] MEDS ORDERED: PILL CUTTER 1 EACH XX PRN (16:25)
[2024-12-27 16:31] LABS: KETONE, URINE AUTO RFX NEGATIVE (NEGATIVE); LEUKOCYTE ESTERASE UR AUTO RFX NEGATIVE (NEGATIVE); NITRITE, URINE AUTO RFX POSITIVE (NEGATIVE); RBC, URINE AUTO RFX 2 /HPF (0-3); SQUAM EPITHELIAL CELL UR AURFX 1 /HPF (0-6); WBC, URINE AUTO RFX 8 /HPF (0-3)
[2024-12-27] MEDS ORDERED: HOME MED LIST COMPLETE! XX SCH (18:30)
[2024-12-27] MEDS: APIXABAN 5 MG TAB PO SCH (21:09)
[2024-12-27] MEDS: amLODIPine 5 MG TAB PO SCH (21:10)
[2024-12-27] MEDS: ACETAMINOPHEN 500 MG TAB PO ONE (23:21)
[2024-12-28] MEDS: ISOSORBIDE MONONITRATE 30 MG XR TAB PO SCH (08:34)
[2024-12-28] MEDS: TORSEMIDE 20 MG TAB PO SCH (08:34)
[2024-12-28] MEDS: EZETIMIBE 10 MG TABLET PO SCH (08:37)
[2024-12-28] MEDS: DAPAGLIFLOZIN PROPANEDIOL 10 MG TABLET PO SCH (08:38)
[2024-12-28] MEDS: ACETAMINOPHEN 325 MG TAB PO PRN (17:10)
[2024-12-28] MEDS: CEPHALEXIN 500 MG CAP PO SCH (21:00)
[2024-12-28 22:55] VITALS: BP 156/68; TEMP 97.3; O2SAT 94
[2024-12-29 06:44] VITALS: BP 169/76; TEMP 97.5; O2SAT 96
[2024-12-29] MEDS ORDERED: ISOSORBIDE MONONITRATE 30 MG XR TAB PO ONE (09:00)
[2024-12-29] MEDS ORDERED: NITROFURANTOIN 100 MG CAP PO SCH (09:00)
[2024-12-29] MEDS: amLODIPine 10 MG TAB PO SCH (09:32)
[2024-12-29] MEDS: ISOSORBIDE MONONITRATE 30 MG XR TAB PO ONE (09:33)
[2024-12-29 09:34] VITALS: BP 141/66
[2024-12-29] MEDS ORDERED: ISOS1TAB36 PO (13:25)
[2024-12-30] MEDS ORDERED: ISOSORBIDE MONONITRATE 60 MG XR TAB PO SCH (09:00)
== END 2024-12-29 13:50 ==
LOC: M ED 12:28 → M ED INP 15:56 → M MS5PR 12-28 22:40
PROVIDERS: ADMIT General Practice; ATTEND General Practice
DX: R53.1 Weakness (principal); Z74.1 Need for assistance with personal care; R54 Age-related physical debility; M48.02 Spinal stenosis, cervical region; M99.71 Connective tissue and disc stenosis of intervertebral foramina of cervical region; M54.12 Radiculopathy, cervical region; Z91.198 Patient's noncompliance with other medical treatment and regimen for other reason; R26.81 Unsteadiness on feet; E66.01 Morbid (severe) obesity due to excess calories; Z68.42 Body mass index [BMI] 45.0-49.9, adult; K21.9 Gastro-esophageal reflux disease without esophagitis; D64.9 Anemia, unspecified; E78.5 Hyperlipidemia, unspecified; Z79.899 Other long term (current) drug therapy; Z86.16 Personal history of COVID-19; I11.0 Hypertensive heart disease with heart failure; I50.30 Unspecified diastolic (congestive) heart failure; M62.82 Rhabdomyolysis; I48.91 Unspecified atrial fibrillation; Z79.01 Long term (current) use of anticoagulants; G47.33 Obstructive sleep apnea (adult) (pediatric); I89.0 Lymphedema, not elsewhere classified; W19.XXXA Unspecified fall, initial encounter
CPT/HCPCS: 51701; 71045; 72141; 80048; 80076; 81001; 85025; 85610; 85730; 87088; 87186; 87426; 93005; 93041; 97116; 97161; 97165; 97530; 99285; G0378

== ENCOUNTER → 2025-01-26 | Outpatient (CLI) | payer MEDICARE, MEDICAID ==
[~2025-01-26] MED LIST changes: +ISOS1TAB36 PO; +POTA-149 PO
== END ==
LOC: M RAD 11:08
PROVIDERS: ATTEND Physician Assistant
DX: M48.02 Spinal stenosis, cervical region (principal); M47.812 Spondylosis without myelopathy or radiculopathy, cervical region

== ENCOUNTER → 2025-02-25 | Outpatient (REF) | payer MEDICARE, MEDICAID ==
[2025-02-25 14:12] LABS: APPEARANCE, URINE HAZY (CLEAR); BACTERIA, URINE AUTO 2+ (NEGATIVE); BILIRUBIN, URINE AUTO NEGATIVE (NEGATIVE); BLOOD, URINE BLOOD NEGATIVE (NEGATIVE); GLUCOSE, URINE (UA) AUTO 3+ mg/dL (NEGATIVE); KETONE, URINE AUTO NEGATIVE (NEGATIVE); LEUKOCYTE ESTERASE, URINE AUTO 1+ (NEGATIVE); MUCUS, URINE SMALL (NEGATIVE); NITRITE, URINE AUTO POSITIVE (NEGATIVE); PROTEIN, URINE AUTO NEGATIVE (NEGATIVE); RBC, URINE AUTO 3 /HPF (0-3); SPECIFIC GRAVITY URINE AUTO 1.007 (1.002-1.035); SQUAMOUS EPITHELIAL CELL UR AU 6 /HPF (0-6); UROBILINOGEN, URINE AUTO 0.2 mg/dL (0.0-2.0); WBC, URINE AUTO 12 /HPF (0-3)
== END ==
LOC: SKLAB3 13:52
PROVIDERS: ATTEND Family Medicine
DX: R30.0 Dysuria (principal)